=== PATIENT | male | born 1965 | race African-American/Black ===

== ENCOUNTER 2017-10-10 09:26 | Inpatient (IN) | payer MEDICARE, MEDICAID ==
[2017-10-10] MEDS ORDERED: Lidocaine 1% (PF) 30 ML VIAL ONE (09:50)
[2017-10-10] MEDS ORDERED: Heparin 10,000 UNITS/1 ML VIAL ONE (09:50)
[2017-10-10 09:55] LABS: #Monocytes 1.2 thou/uL (0.11-0.59); #Neutrophils 9.2 thou/uL (1.40-6.50); %Basophils 0.3 % (0.0-1.0); %Eosinophils 0.1 % (0.0-10.0); %Lymphocytes 16.1 % (21.0-51.0); %Monocytes 9.5 % (0.0-10.0); %Neutrophils 73.9 % (42.0-75.0); Hemoglobin 15.1 g/dL (14.0-18.0); Mean Corpuscular HGB CONC 31.8 g/dL (32.0-36.0); Mean Corpuscular Hemoglobin 27.7 pg (27.0-31.0); Mean Corpuscular Volume 86.9 fl (80.0-94.0); Mean Platelet Volume 7.5 fL (7.4-10.4); Platelet Count 237 thou/uL (130-400); RBC Distribution Width 13.6 % (11.5-14.5); Red Blood Cell (RBC) Count 5.46 mill/uL (4.70-6.10); White Blood Cell (WBC) Count 12.4 thou/uL (4.8-10.8)
[2017-10-10 10:00] LABS: PTT 29.9 SEC (22.9-36.1); Prothrombin Time 13.7 SEC (12.0-14.7)
[2017-10-10] MEDS ORDERED: diphenhydrAMINE 50 MG/ML VIAL ONE (10:00)
[2017-10-10] MEDS ORDERED: methylPREDNISolone Sod Succ/PF 125 MG/2 ML VIAL ONE (10:00)
[2017-10-10] MEDS ORDERED: Water For Inject, Bacteriostat 30 ML ONE (10:00)
[2017-10-10 10:04] LABS: ALT (SGPT) 23 U/L (8-55); AST (SGOT) 18 U/L (5-34); Albumin 4.6 g/dL (3.5-5.0); Alkaline Phosphatase 60 U/L (40-150); Anion Gap 14 mmol/L (10-20); BUN (Urea Nitrogen) 14 mg/dL (8.4-25.7); Bilirubin, Total 1.3 mg/dL (0.2-1.2); CK (CPK) 68 U/L (30-200); Calc. Creatinine Clearance 0 mL/min (70-130); Calcium 9.3 mg/dL (7.8-10.44); Carbon Dioxide 22 mmol/L (22-29); Chloride 105 mmol/L (98-107); Estimated GFR-MDRD Greater than 90; Globulin 3.2 g/dL (2.4-3.5); Glucose 119 mg/dL (70-105); Potassium 4.5 mmol/L (3.5-5.1); Protein, Total 7.8 g/dL (6.0-8.3); Sodium 136 mmol/L (136-145)
[2017-10-10] MEDS ORDERED: Midazolam HCl 2 mg/2 ml Vial ONE (10:07)
[2017-10-10] MEDS ORDERED: Fentanyl 100 MCG/2 ML VIAL ONE (10:07)
[2017-10-10 10:08] LABS: CKMB 0.6 ng/mL (0-6.6); Troponin I 0.094 ng/mL (< 0.028)
[2017-10-10] MEDS ORDERED: Famotidine/PF 20 mg/2ml Vial ONE (10:08)
[2017-10-10] MEDS ORDERED: diphenhydrAMINE 50 MG in Sodium Chloride 0.9% 50 ML IVPB SCH (10:15)
[2017-10-10] MEDS ORDERED: methylPREDNISolone Sod Succ/PF 125 MG/2 ML VIAL IVP SCH (10:15)
[2017-10-10] MEDS ORDERED: Famotidine 20 MG TAB PO SCH (10:15)
[2017-10-10 10:26] LABS: Cardiac Risk 3.2 (Less than 4.5)
[2017-10-10] MEDS ORDERED: Acetaminophen/Codeine 30-300mg Tablet PO PRN ×2 (10:39)
[2017-10-10] MEDS ORDERED: traMADol HCl 50 MG TAB PO PRN (10:39)
[2017-10-10] MEDS ORDERED: Colchicine 0.6 MG TAB PO SCH (10:45)
[2017-10-10] MEDS ORDERED: Sodium Chloride 0.9% 1,000 ML IV SCH (10:45)
[2017-10-10] MEDS ORDERED: Indomethacin 75 mg SR Capsule PO SCH ×2 (10:45→15:30)
[2017-10-10] MEDS ORDERED: Sodium Chloride 0.9% 200 ML IV SCH (10:45)
--- NOTE | 2017-10-10 11:03 | HP ---
HISTORY: Mr. Lazarus Dumont is a 51-year-old black male with previous history of CVA who presents complaining of chest pain. He denies any previous cardiac problems or chest discomfort. He awoke at 2:00 a.m. this morning with chest pressure and shortness of breath. The pain was pleuritic in nature. He also noticed that it was worse if he was supine and better if he was sitting up. He went to the emergency room in [place] and was evaluated there and then discharged. He continued to have chest pain and decided to come here for further evaluation. The pain has been ongoing and continuous for 8 hours. PAST MEDICAL HISTORY: Hyperlipidemia. He denies any history of hypertension or diabetes. 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 He was given TPA. He was discharged on atorvastatin 80 and aspirin 325, but he rarely takes the aspirin and was told last year that he could stop the atorvastatin after his LDL fell from 131 down to 42. Another LDL , however, was 124 after he stopped the atorvastatin. CURRENT MEDICATIONS: Aspirin, rarely. ALLERGIES: IODINE - apparently has history of rash with iodine, although the family cannot remember exactly when that occurred, but it was many years ago. In review of the scans that he had here in 04/2016 with his stroke, there is no mention of iodine allergy or that he received any type of premedication prior to those tests. OPERATIONS: Left eye surgery after work injury. SOCIAL HISTORY: He continues to smoke 1 pack per day. He does not drink alcohol. FAMILY HISTORY: Mother had CABG. REVIEW OF SYSTEMS: Twelve point review of systems otherwise unremarkable. PHYSICAL EXAMINATION: VITAL SIGNS: Blood pressure is 110/70, pulse of 80. HEENT: Blind left eye. CHEST: Clear. CARDIAC: S1 and S2 are normal, without any S3, S4, murmurs or rubs. ABDOMEN: Normal bowel sounds, without tenderness or organomegaly. EXTREMITIES: Revealed no clubbing, cyanosis or edema. NEUROLOGIC: Patient has mild right weakness. IMAGING: EKG reveals approximately [address] segment elevation in lead I, lead II, aVL and V4 through V6. The ST segment elevation is concave upward. This is compared to an EKG from 04/2016 where there is a minor early repolarization, but no changes similar what were seen at the present time. No blood tests are back at the present time. IMPRESSION: 1. Chest discomfort, clinically most compatible with pericarditis with pleuritic type pain as well as pain with worse lying supine and better, sitting up. However, he does have history of vascular problems with previous cerebrovascular accident and does have ST elevation on his EKG, which probably represents pericarditis. 2. Questionable IODINE allergy - no mention is made on previous contrast enhanced CTs that premedication was given. 3. Hypercholesterolemia with LDL of 131 at the time of his stroke falling to 42 with atorvastatin 80 and then that was discontinued and his LDL went up to 124. 4. Noncompliance with aspirin. 5. The patient continues to smoke. 6. Positive family history. 7. Blind left eye. 8. Left middle cerebral artery cerebrovascular accident. RECOMMENDATIONS: The patient will be given Solu-Medrol 125 mg IV as well as Benadryl 50, Pepcid 20 p.o. It was recommended that he undergo emergent catheterization even though he does have questionable IODINE allergy. Risk of catheterization were discussed including , myocardial infarction, dye reaction, vascular injury, CVA, transfusion, limb loss, renal loss, etc. Also, risk of intervention with PTCA and stent placement were discussed including , myocardial infarction, emergent CABG, restenosis, stent thrombosis, vessel perforation, etc. With his history of noncompliance with aspirin, I would only place a bare metal stent. [facility]
[2017-10-10] MEDS ORDERED: Aspirin 325 mg Enteric Coated Tablet PO SCH (11:30)
[2017-10-10 11:44] VITALS: BMI 22.1
[2017-10-10] MEDS ORDERED: Iopamidol 370 76% 100 ML VIAL ONE (15:10)
[2017-10-10 16:01] LABS: CKMB 0.5 ng/mL (0-6.6); Troponin I 0.053 ng/mL (< 0.028)
[2017-10-10] MEDS ORDERED: Ondansetron HCl/PF 4 MG/2 ML Vial IVP PRN (17:19)
[2017-10-10] MEDS ORDERED: Sodium Chloride 0.9% 1,000 ML BAG ONE (18:00)
[2017-10-10] MEDS: Colchicine 0.6 MG TAB PO SCH (20:53)
[2017-10-10] MEDS ORDERED: Atorvastatin Calcium 40 MG TAB PO SCH (21:00)
[2017-10-10 22:15] LABS: CKMB 6.1 ng/mL (0-6.6)
[2017-10-10 22:22] LABS: Troponin I 0.829 ng/mL (< 0.028)
[2017-10-11] MEDS: Colchicine 0.6 MG TAB PO SCH (08:42)
[2017-10-11] MEDS ORDERED: Aspirin 325 mg Enteric Coated Tablet PO SCH (09:00)
[2017-10-11 13:00] LABS: CKMB 3.6 ng/mL (0-6.6)
[2017-10-11 13:10] LABS: Critical Call Chem Troponin I RESULT DECREASING; Troponin I 0.309 ng/mL (< 0.028)
[2017-10-11 15:53] VITALS: BP 106/73; TEMP 98.2
--- NOTE | 2017-10-12 03:10 | DIS ---
DISCHARGE DIAGNOSES: 1. Acute mild pericarditis. 2. History of IODINE allergy. 3. Normal coronary arteries. 4. Hypercholesterolemia with need for statin. 5. The patient continues to smoke. 6. Positive family history. 7. Blind, left eye. 8. History of left middle cerebral artery cerebrovascular accident. DISCHARGE MEDICATIONS: Aspirin 81 daily, atorvastatin 40 mg daily, colchicine 0.6 mg b.i.d. x2 weeks . DISCHARGE DISPOSITION: The patient was told to follow up with Dr. Alva in 4 to 6 weeks for monito ring of his cholesterol. LDL goal should be less than 70. HOSPITAL COURSE: Mr. Dumont presented to the emergency room complaining of chest pain. Earlier that day, he went to the Emergency Room in [place] and was told that everything was normal on discharge. Chetan roth continued to have chest pain. He describes this as a sharp and pressure type sensation that was de finitely pleuritic in nature. The pain was worse with lying supine and better with sitting up. EKG on presentation revealed [address] segment elevation 1, 2, and aVL, V2 through V6. The ST elevation with concave upward as well as EKG, it was felt that he probably had pericarditis. However, with hi story of previous CVA, decision was made to give him intravenous steroids and Benadryl and go to the quality lab technician and just do a coronary arteriogram. This revealed totally normal coronaries. He did not castellanos ve any reaction to the dye. He was started on colchicine in less than 24 hours pain, it totally resolved even with deep breath. He will continue this for another 2 weeks. He has been noncompliant with his aspirin and he was told that he needs to take aspirin daily. Also, on 80 mg of atorvastatin in the past, his LDL fell from 131 to 42 and the 80 mg was stopped and that he had an LDL of 124, but atorvastatin was never restarted. His LDL during this admission was 116 a nd he will be restarted on atorvastatin 40 mg. He did have an increase in his troponin I to 0.829 and it is felt that he had some degree of myocardi tis associated with pericarditis. Echocardiogram was performed; however, due to the system malfuncti oning this is unable to be interpreted at this time.
== END 2017-10-11 17:54 | disposition home or self-care (01) | DRG 287 ==
LOC: ERS 09:26 → 2NO 11:26
PROVIDERS: ADMIT Internal Medicine Cardiovascular Disease; ATTEND Internal Medicine Cardiovascular Disease
PROC: B2111ZZ Fluoroscopy of Multiple Coronary Arteries using Low Osmolar Contrast (ICD-10-PCS; principal; 2017-10-10)
DX: I31.9 Disease of pericardium, unspecified (principal); R94.31 Abnormal electrocardiogram [ECG] [EKG]; I51.4 Myocarditis, unspecified; E78.00 Pure hypercholesterolemia, unspecified; F17.210 Nicotine dependence, cigarettes, uncomplicated; Z91.14 Patient's other noncompliance with medication regimen; H54.62 Unqualified visual loss, left eye, normal vision right eye; R74.8 Abnormal levels of other serum enzymes; Z82.49 Family history of ischemic heart disease and other diseases of the circulatory system; Z88.8 Allergy status to other drugs, medicaments and biological substances
CPT/HCPCS: 36415; 80053; 80061; 82550; 82553; 84484; 85025; 85347; 85610; 85730; 86850; 86900; 86901; 93005; 93306; 93454; 93798; 94760; 99152; C1769; J1200; J1644; J2001; J2250; J2930; J3010; J7050; S0028